=== PATIENT | female | born 1995 | race Caucasian/White ===

== ENCOUNTER 2021-12-15 00:44 | Inpatient (IN) | payer BC, SELFPAY ==
[2021-12-15] VITALS (15 sets, daily range): BP systolic 114–186; BP diastolic 58–100
[~2021-12-15] VITALS: Ht 165.1 cm; Wt 107.2 kg
[2021-12-15] MEDS ORDERED: METF10004 PO ×2 (01:17→01:19)
[2021-12-15] MEDS ORDERED: PREN1CHW6 PO (01:17)
[2021-12-15] MEDS ORDERED: TUMS500C PO (01:17)
[2021-12-15] MEDS ORDERED: OXYTOCIN DRIP 30 UNITS in IV 1 EA IV PRN ×6 (01:20)
[2021-12-15] MEDS ORDERED: TRANEXAMIC ACID INJection 1,000 MG in NS 100 ML IV PRN (01:20)
[2021-12-15] MEDS ORDERED: METHYLERGONOVINE MALEATE 0.2 MG/ML VIAL (J2210) IM PRN (01:20)
[2021-12-15] MEDS ORDERED: OXYTOCIN INJ 10 UNITS/ML VIAL (J2590) IV PRN (01:20)
[2021-12-15] MEDS ORDERED: LIDOCAINE 1% MDV 20ML VIAL INFIL PRN (01:20)
[2021-12-15] MEDS ORDERED: OXYTOCIN INJ 10 UNITS/ML VIAL (J2590) IM PRN (01:20)
[2021-12-15] MEDS ORDERED: CARBOPROST TROMETHAMINE 250 MCG/ML AMP IM PRN (01:20)
[2021-12-15] MEDS ORDERED: LR 1,000 ML IV ONE ×2 (02:10→05:10)
[2021-12-15 02:23] LABS: HEMATOCRIT 33.1 % (36.0-47.0); HEMOGLOBIN 11.3 g/dl (12.0-15.5); MEAN CORPUSCULAR HEMOGLOBIN 32.9 pg (27.0-33.0); MEAN CORPUSCULAR HGB CONC 34.1 g/dl (32.0-36.5); MEAN CORPUSCULAR VOLUME 96.5 fl (80.0-96.0); PLATELET COUNT, AUTOMATED 196 10^3/uL (150-450); RED BLOOD COUNT 3.43 10^6/uL (4.00-5.40); WHITE BLOOD COUNT 15.8 10^3/uL (4.0-10.0)
[2021-12-15 04:29] LABS: ALBUMIN 2.9 GM/DL (3.2-5.2); ALT/SGPT 15 U/L (12-78); BILIRUBIN,TOTAL 0.2 MG/DL (0.2-1.0); BLOOD UREA NITROGEN 10 MG/DL (7-18); CALCIUM LEVEL 9.1 MG/DL (8.5-10.1); CARBON DIOXIDE LEVEL 23 MEQ/L (21-32); CHLORIDE LEVEL 108 MEQ/L (98-107); CREATININE FOR GFR 0.57 MG/DL (0.55-1.30); GLOMERULAR FILTRATION RATE > 60.0 (>60); GLUCOSE, FASTING 92 MG/DL (70-100); POTASSIUM SERUM 3.6 MEQ/L (3.5-5.1); SODIUM LEVEL 140 MEQ/L (136-145); TOTAL PROTEIN 6.2 GM/DL (6.4-8.2)
[2021-12-15] MEDS ORDERED: LR 1,000 ML IV SCH (05:20)
[2021-12-15] MEDS ORDERED: LIDOCAINE 1% MDV 20ML VIAL IM ONE (05:55)
[2021-12-15] MEDS: SLF 3 ML SYR IV SCH ×3 (06:00→21:42)
[2021-12-15] MEDS ORDERED: LIDOCAINE 1% MDV 20ML VIAL As Ordered ONE (06:08)
[2021-12-15] MEDS ORDERED: LIDOCAINE 1% MDV 20ML VIAL INFIL ONE (06:55)
[2021-12-15] MEDS ORDERED: DIBUCAINE 1% OINTMENT 30GM TOP PRN (06:55)
[2021-12-15] MEDS ORDERED: DOCUSATE SODIUM 100MG CAPSULE PO PRN (06:55)
[2021-12-15] MEDS ORDERED: IBUPROFEN 800 MG TAB PO PRN (06:55)
[2021-12-15] MEDS ORDERED: ACETAMINOPHEN 500 MG TAB PO PRN (06:55)
[2021-12-15] MEDS ORDERED: OXYTOCIN DRIP 30 UNITS in IV 1 EA IV SCH (06:55)
[2021-12-15] MEDS ORDERED: METHYLERGONOVINE MALEATE 0.2 MG TAB PO PRN (06:55)
[2021-12-15] MEDS: ACETAMINOPHEN TAB 650MG DOSE (2X325MG) PO PRN ×3 (07:59→23:52)
[2021-12-15] MEDS: PRENATAL VITAMINS CHEWABLE TABLET PO SCH (09:00)
[2021-12-15] MEDS ORDERED: SLF 3 ML SYR IV PRN (09:55)
[2021-12-15] MEDS: IBUPROFEN 600MG TAB PO PRN (12:37)
[2021-12-16 06:02] VITALS: BP 119/67
[2021-12-16 07:15] LABS: HEMATOCRIT 30.5 % (36.0-47.0); HEMOGLOBIN 10.2 g/dl (12.0-15.5); MEAN CORPUSCULAR HEMOGLOBIN 32.9 pg (27.0-33.0); MEAN CORPUSCULAR HGB CONC 33.4 g/dl (32.0-36.5); MEAN CORPUSCULAR VOLUME 98.4 fl (80.0-96.0); PLATELET COUNT, AUTOMATED 181 10^3/uL (150-450); WHITE BLOOD COUNT 14.3 10^3/uL (4.0-10.0)
[2021-12-16] MEDS: ACETAMINOPHEN TAB 650MG DOSE (2X325MG) PO PRN (07:58)
[2021-12-16] MEDS: PRENATAL VITAMINS CHEWABLE TABLET PO SCH (07:58)
[2021-12-16 18:00] VITALS: BP 109/65
[2021-12-17 06:00] VITALS: BP 129/70
[2021-12-17] MEDS ORDERED: ACET1TAB55 PO (06:52)
[2021-12-17] MEDS ORDERED: IBUP-1022 PO (06:52)
[2021-12-17] MEDS: PRENATAL VITAMINS CHEWABLE TABLET PO SCH (07:27)
[2021-12-17] MEDS: IBUPROFEN 600MG TAB PO PRN (07:28)
== END 2021-12-17 10:40 | disposition home or self-care (01) | DRG 560 ==
LOC: EDBD 00:44 → M LDI 00:44 → OBSVTOIN 01:24 → M LDI 03:30 → M OBS 08:59
PROVIDERS: ADMIT Obstetrics & Gynecology Obstetrics; ATTEND Obstetrics & Gynecology Obstetrics
PROC: 10E0XZZ Delivery of Products of Conception, External Approach (ICD-10-PCS; principal; 2021-12-15)
PROC: 0HQ9XZZ Repair Perineum Skin, External Approach (ICD-10-PCS; 2021-12-15)
PROC: 0UQMXZZ Repair Vulva, External Approach (ICD-10-PCS; 2021-12-15)
DX: O70.0 First degree perineal laceration during delivery (principal); Z3A.40 40 weeks gestation of pregnancy; Z37.0 Single live birth; O71.82 Other specified trauma to perineum and vulva